=== PATIENT | male | born 1980 | race Caucasian/White ===

== ENCOUNTER → 2016-12-22 | Outpatient (REF) ==
--- NOTE | 2016-12-22 15:24 | REP ---
RIGHT FOREARM, TWO VIEWS: HISTORY: Degenerative joint disease. There is no acute fracture or dislocation. The joint spaces are normal in appearance. IMPRESSION: There is no acute fracture or dislocation. Signed by Luan Roland MD 12/22/2016 03:30 P
--- NOTE | 2016-12-22 15:24 | REP ---
RIGHT WRIST, FOUR VIEWS: HISTORY: Degenerative joint disease. There is no acute fracture or dislocation. The joint spaces are normal in appearance. IMPRESSION: There is no acute fracture or dislocation. Signed by Luan Roland MD 12/22/2016 03:30 P
--- NOTE | 2016-12-22 15:30 | REP ---
RIGHT HAND, FOUR VIEWS: HISTORY: Degenerative joint disease. There is no acute fracture. There is narrowing of the first carpal metacarpal joint space with minimal lateral subluxation of the first proximal phalange. Erosions are present in the base of the proximal phalange. There is demineralization of a sesamoid bone present lateral to the metacarpal phalangeal joint space of the first digit. There is narrowing of the third metacarpal phalangeal joint space. Erosions are present in the base of the proximal phalangeal of the third digit. There remaining joint spaces are normal in appearance. IMPRESSION: Findings consistent with inflammatory arthritis. Signed by Luan Roland MD 12/22/2016 03:36 P
== END ==
LOC: M SMT 12:49
PROVIDERS: ATTEND Internal Medicine
DX: Z02.1 Encounter for pre-employment examination (principal)